=== PATIENT | female | born 1940 | race Caucasian/White ===

== ENCOUNTER 2016-05-14 06:19 | Day surgery (SDC) | payer MEDICARE, OTHER ==
[~2016-05-14 06:19] MED LIST: ASPI81 PO; CLAR10TA7 PO; LOPR100T2; RIVA20 PO; SOMA350T; TAB-TAB PO
[2016-05-14 06:59] VITALS: BP 123/71; PULSE 58; RESP 16; TEMP 98.1; O2SAT 100
[2016-05-14] MEDS ORDERED: NS 1000 ML IV SCH (07:00)
[2016-05-14] MEDS ORDERED: MUPIROCIN 2% OINT 1 APPLIC/GM SYR NASAL SCH (07:00)
[2016-05-14] MEDS ORDERED: VANCOMYCIN 1000 MG/NS 250 ML IV SCH ×2 (07:00)
[2016-05-14] MEDS ORDERED: NO Heparin, Lovenox, Coumadin at least 12 hours prior to procedure. XX PRN (07:00)
[2016-05-14] MEDS ORDERED: POVIDONE IODINE 5% (ANTISEPSIS KIT) 4 APPLICATIONS EACH NARE SCH (07:00)
[2016-05-14] MEDS ORDERED: CHLORHEXIDINE GLUCONATE 2 % 1 PACK (2 CLOTHS) TOP SCH (07:00)
[2016-05-14] MEDS ORDERED: ACET1CAP18 PO (07:09)
[2016-05-14] MEDS ORDERED: SOMA350T PO (07:09)
[2016-05-14] MEDS ORDERED: METO50TA PO (07:09)
[2016-05-14] MEDS ORDERED: TOPR25TA PO (07:09)
[2016-05-14] MEDS ORDERED: LORA10TA PO (07:09)
[2016-05-14] MEDS ORDERED: XARE20TA PO (07:09)
[2016-05-14] MEDS ORDERED: MIDAZOLAM HCL 2 MG/2 ML VIAL ONE (08:19)
[2016-05-14] MEDS ORDERED: LIDOCAINE HCL 1% PF 30 ML VIAL ONE (08:19)
[2016-05-14] MEDS ORDERED: VANCOMYCIN 500 MG VIAL ONE (08:33)
[2016-05-14] MEDS ORDERED: CARISOPRODOL 350 MG TAB PO PRN (10:15)
[2016-05-14] MEDS ORDERED: PILL SPLITTER OTHER PRN (10:15)
[2016-05-14] MEDS ORDERED: LORATADINE 10 MG TAB PO PRN (10:30)
[2016-05-14] MEDS ORDERED: ACETAMINOPHEN 325 MG TAB PO PRN (10:30)
[2016-05-14] MEDS ORDERED: METOPROLOL SUCCINATE 25 MG EXTENDED RELEASE TAB PO SCH (21:00)
[2016-05-14] MEDS ORDERED: RIVAROXABAN 20 MG TAB PO SCH (21:00)
--- NOTE | 2016-05-16 10:13 | MP ---
cc: SAMUEL MARTIN M.D., BENJAMIN J. M.D. DATE OF SURGERY: 05/14/2016 PROCEDURE PERFORMED Explantation of a Medtronic loop recorder. PREOPERATIVE DIAGNOSIS Xjw-[id number]-[id number] loop recorder. POSTOPERATIVE DIAGNOSIS Tfu-qh-keyraqa loop recorder. ANESTHESIA Intravenous Versed and fentanyl for awake sedation, and 1% Xylocaine local. ESTIMATED BLOOD LOSS None. COMPLICATIONS None. PROCEDURE TECHNIQUE The patient was brought to the cardiac catheterization laboratory and the area of the previous loop recorder implant site was prepped and draped in the usual sterile manner. Following 10 mL of 1% Xylocaine an incision was made in the skin over the existing scar and with the use of blunt dissection the existing loop recorder was located, the suture removed, and the loop recorder explanted from the pocket without difficulty. The pocket was then irrigated with normal saline copiously. The pocket was then closed with 3-0 Vicryl for deep closure and 4-0 Vicryl for subcuticular closure in a running fashion. Steri-Strips and a sterile pressure dressing was placed and the patient was transferred to the post-op unit in stable condition for discharge to home later today. Explanted device is a Medtronic model 9529 implantable loop recorder, serial number [id number]. Implant date January 12, 2013. MD EVANGELINA Benton/DAO /8:56 AM /10:11 AM
== END 2016-05-14 10:20 | disposition home or self-care (01) ==
LOC: HDOC 06:19 → HDIC 06:22 → HDOC 10:20
PROVIDERS: ATTEND Internal Medicine Interventional Cardiology
DX: Z45.09 Encounter for adjustment and management of other cardiac device (principal); I48.92 Unspecified atrial flutter
CPT/HCPCS: 33284; J2250; J3010; J3370